=== PATIENT | female | born 1940 | race Caucasian/White ===

== ENCOUNTER 2018-12-22 13:30 | Emergency (ER) | payer MEDICARE, OTHER | END 2018-12-22 15:01 | disposition home or self-care (01) | LOC: BURERS 13:30 | DX: S76.011A Strain of muscle, fascia and tendon of right hip, initial encounter (principal); E03.9 Hypothyroidism, unspecified; I10 Essential (primary) hypertension; Z79.899 Other long term (current) drug therapy; W19.XXXA Unspecified fall, initial encounter ==